=== PATIENT | female | born 1985 | race Caucasian/White ===

== ENCOUNTER → 2018-02-26 | Outpatient (CLI) | payer SELFPAY | LOC: COL.RAD 16:03 | DX: S62.396A Other fracture of fifth metacarpal bone, right hand, initial encounter for closed fracture (principal); M20.091 Other deformity of right finger(s); M89.8X4 Other specified disorders of bone, hand ==

== ENCOUNTER → 2019-01-27 | Outpatient (CLI) | payer SELFPAY ==
[2019-01-27 11:15] LABS: COLLECTION METHOD CLEAN CATCH
[2019-01-27 11:47] LABS: ALBUMIN 4.4 gm/dL (3.5-5.0); BILIRUBIN,TOTAL 0.7 mg/dL (0.0-1.0); CALCIUM 9.5 mg/dL (8.4-10.2); CHOLESTEROL RISK RATIO 3.6; CREATININE, serum 0.67 mg/dL (0.52-1.25); POTASSIUM 4.1 mmol/L (3.4-5.0); TOTAL PROTEIN 7.7 gm/dL (6.4-8.2)
[2019-01-27 11:52] LABS: MUCOUS Present /lpf; PH 6 (5-8); SQUAMOUS EPITHELIAL 0-2 /hpf; URINE APPEARANCE Clear; URINE BACTERIA Rare /hpf; URINE BILIRUBIN Negative (NEGATIVE); URINE BLOOD Negative (NEGATIVE); URINE COLOR Yellow; URINE GLUCOSE Negative (NEGATIVE); URINE KETONE Negative (NEGATIVE); URINE LEUKOCYTE ESTERASE Negative (NEGATIVE); URINE NITRATE Negative (NEGATIVE); URINE PROTEIN(semi-quant) Negative (NEGATIVE); URINE RBC 0-2 /hpf; URINE UROBILINOGEN Negative (NEGATIVE); URINE WBC 0-2 /hpf
[2019-01-27 12:13] LABS: THYROID STIMULATING HORMONE 3.23 uIU/mL (0.465-4.680)
[2019-01-27 12:19] LABS: BASO # 0.1 (0.0-0.2); BASO % 1.2 % (0.0-2.0); EOS # 0.2 (0.0-0.7); EOS % 2.7 % (0-4.0); GRAN # 2.9 (1.4-6.5); HEMOGLOBIN 14.9 g/dl (12.5-16.0); LYMPH # 2.3 (1.2-3.4); LYMPH % 38.3 % (20.0-51.0); MEAN CELL VOLUME 89 fl (80.0-100.0); MEAN CORPUSCULAR HEMOGLOBIN 30 pg (27.0-31.0); MEAN CORPUSCULAR HGB CONC 33 g/dl (33.0-37.0); MEAN PLATELET VOLUME 11.1 fl (7.4-10.4); MONO # 0.6 (0.1-0.6); MONO % 9.5 % (1.7-9.3); PLATELET COUNT 305 K/mm3 (130-400); RED BLOOD COUNT 5.04 M/mm3 (4.10-5.30); REDCELL DISTRIBUTION WIDTH-CV 13.1 % (11.5-14.5)
== END ==
LOC: ZLAB.FHCC 10:41
PROVIDERS: Internal Medicine
DX: R00.0 Tachycardia, unspecified (principal)

== ENCOUNTER 2019-05-26 05:31 | Day surgery (SDC) | payer OTHER ==
[~2019-05-26] VITALS: Ht 157.5 cm; Wt 91.3 kg
[2019-05-26 06:04] VITALS: BP 136/69; PULSE 100; TEMP 98.5
[2019-05-26 07:45] VITALS: BP 116/78; PULSE 92
--- NOTE | 2019-05-26 07:45 | NUR ---
Patient returns to room 8 per cart from the surgery room and is awake and alert. Right arm numb due to block placed prior to surgery for pain control post-op. Miguel wrap dressing is clean and dry and sling placed on the right arm. Fingers warm and pink and nail beds pink on the right hand. IV fluids infusing. Informed by Juan Diego Braga CRNA that she may have sleep apnea and would benefit from sleep study. Patient agrees and admits to waking herself up snoring. Taking Sprite and denies nausea.
[2019-05-26 08:00] VITALS: BP 111/74; PULSE 88
--- NOTE | 2019-05-26 08:00 | NUR ---
Sipping on Sprite and denies nausea. Right arm supported in sling and states the right arm is numb.
[2019-05-26 08:15] VITALS: BP 128/79; PULSE 90
--- NOTE | 2019-05-26 08:15 | NUR ---
Resting and friend in room. Right hand dressing clean and dry.
[2019-05-26] MEDS ORDERED: ULTRAM 50MG TAB50 MG PO (08:17)
[2019-05-26] MEDS ORDERED: COLACE 100100 MG/CAP PO (08:19)
[2019-05-26] MEDS ORDERED: MOBIC15 MG PO (08:19)
[2019-05-26] MEDS ORDERED: ZOFRAN 4MG T4 MG/TAB PO (08:20)
[2019-05-26 08:30] VITALS: BP 127/76; PULSE 84
--- NOTE | 2019-05-26 08:30 | NUR ---
Continues to sip on Sprite and eat ice cream. Room air sats 96%.
[2019-05-26 08:45] VITALS: BP 132/71; PULSE 81
--- NOTE | 2019-05-26 08:45 | NUR ---
Tolerated ice cream and Sprite. Right arm remains in sling and states that she doen't not have any feeling or pain in the hand. Instructed the block can last for 8-16 hours or possibly longer and to keep the fingers on the right hand from getting stiff by using the left hand to do gentle ROM.
--- NOTE | 2019-05-26 09:00 | NUR ---
IV fluids completed and converted to INT. Continues to deny pain or nausea.
--- NOTE | 2019-05-26 09:20 | NUR ---
Patient returns to room after ambulating to the bathroom and voids. Sling maintained on the right arm for support due to numbness from block.
--- NOTE | 2019-05-26 09:43 | NUR ---
Patient dimissed to home per private vehilce driven by friend and taken to the front door per wheelchair and assisted into car with dismissal instructions in hand. Provided scripts for Elías Sharp Colace, and Bayron.
== END 2019-05-26 09:43 | disposition home or self-care (01) ==
LOC: SDCO 05:31
DX: T84.84XA Pain due to internal orthopedic prosthetic devices, implants and grafts, initial encounter (principal); G47.33 Obstructive sleep apnea (adult) (pediatric); E66.9 Obesity, unspecified; Z82.61 Family history of arthritis; Z82.62 Family history of osteoporosis; Z82.49 Family history of ischemic heart disease and other diseases of the circulatory system; Z80.9 Family history of malignant neoplasm, unspecified; Z79.82 Long term (current) use of aspirin; Z68.37 Body mass index [BMI] 37.0-37.9, adult
CPT/HCPCS: J0690; J2250; J2704; J2795; J7120

== ENCOUNTER → 2019-10-01 | Outpatient (CLI) | payer SELFPAY ==
[~2019-10-01] MED LIST: COLACE 100100 MG/CAP PO; MOBIC15 MG PO; ULTRAM 50MG TAB50 MG PO; ZOFRAN 4MG T4 MG/TAB PO
== END ==
LOC: COL.RAD 09:00
DX: M25.562 Pain in left knee (principal); Z98.890 Other specified postprocedural states

== ENCOUNTER → 2019-12-29 | Outpatient (CLI) | payer OTHER ==
[2019-12-29 14:47] LABS: BASO # 0.1 (0.0-0.2); BASO % 1.7 % (0.0-2.0); EOS # 0.2 (0.0-0.7); EOS % 3.6 % (0-4.0); GRAN # 2.5 (1.4-6.5); GRAN % 47.5 % (42.2-75.2); HEMATOCRIT 43.6 % (37.0-47.0); LYMPH % 37.2 % (20.0-51.0); MEAN CELL VOLUME 89 fl (80.0-100.0); MEAN CORPUSCULAR HEMOGLOBIN 29 pg (27.0-31.0); MEAN CORPUSCULAR HGB CONC 32 g/dl (33.0-37.0); MONO # 0.5 (0.1-0.6); MONO % 9.8 % (1.7-9.3); PLATELET COUNT 291 K/mm3 (130-400); RED BLOOD COUNT 4.88 M/mm3 (4.10-5.30); REDCELL DISTRIBUTION WIDTH-CV 13.3 % (11.5-14.5)
[2019-12-29 15:19] LABS: ALBUMIN 4.1 gm/dL (3.5-5.0); BILIRUBIN,TOTAL 0.4 mg/dL (0.0-1.0); CALCIUM 8.9 mg/dL (8.4-10.2); CHOLESTEROL RISK RATIO 3.4; CREATININE, serum 0.64 (0.52-1.25); POTASSIUM 4.7 mmol/L (3.4-5.0); TOTAL PROTEIN 7.2 gm/dL (6.4-8.2)
== END ==
LOC: ZLAB.FHCC 12:08
DX: R53.83 Other fatigue (principal)

== ENCOUNTER 2023-08-22 21:54 | Emergency (ER) | payer SELFPAY ==
[~2023-08-22] VITALS: Ht 160 cm; Wt 68.2 kg
[2023-08-22 21:55] VITALS: TEMP 99.3
[2023-08-22 23:12] VITALS: BP 149/92; PULSE 87
== END 2023-08-22 23:12 | disposition home or self-care (01) ==
LOC: COL.ER 21:54
DX: S09.90XA Unspecified injury of head, initial encounter (principal); S01.81XA Laceration without foreign body of other part of head, initial encounter; W18.30XA Fall on same level, unspecified, initial encounter; W22.8XXA Striking against or struck by other objects, initial encounter; Y99.0 Civilian activity done for income or pay